=== PATIENT | male | born 1945 | race Caucasian/White ===

== ENCOUNTER → 2016-12-07 | Outpatient (CLI) | payer BC, OTHER | LOC: FIMAGING 07:59 | PROVIDERS: ATTEND Internal Medicine Hematology & Oncology | DX: C43.9 Malignant melanoma of skin, unspecified (principal) ==

== ENCOUNTER → 2018-03-22 | Outpatient (CLI) | payer BC | LOC: FIMAGING 13:48 | PROVIDERS: ATTEND Internal Medicine Hematology & Oncology | DX: Z08 Encounter for follow-up examination after completed treatment for malignant neoplasm (principal); Z85.820 Personal history of malignant melanoma of skin ==

== ENCOUNTER → 2018-04-27 | Outpatient (CLI) | payer BC ==
[~2018-04-27] MED LIST: GADOBUTROL 10 ML VIAL IVP ONE
== END ==
LOC: FIMAGING 09:33
PROVIDERS: ATTEND Specialist
DX: C61 Malignant neoplasm of prostate (principal)
CPT/HCPCS: 72197; 76377; 78306; A9503; A9585

== ENCOUNTER 2018-08-19 00:55 | Emergency (ER) | payer OTHER, MEDICARE ==
[2018-08-19] MEDS ORDERED: ONDANSETRON 4 MG/2 ML VIAL ONE (01:16)
[2018-08-19] MEDS ORDERED: ONDANSETRON 4 MG/2 ML VIAL IVP ONE (01:16)
[2018-08-19] MEDS ORDERED: NS 1,000 ML IV ONE (01:31)
[2018-08-19] MEDS ORDERED: HYDROmorphONE/DILAUDID 2 MG/ML INJ IVP ONE (01:31)
[2018-08-19 01:52] LABS: PLATELET COUNT 176 10^3/uL (150-400)
--- NOTE | 2018-08-19 01:53 | EDPHY ---
H & P Stated Complaint: l flank pain - Personal History Current Tetanus Diphtheria and Acellular Pertussis (TDAP): Unsure - Medical/Surgical History Hx Diabetes: No Other PMH: htn, prostate ca. melanoma (10 yrs ago). kidney stones. hernia repair. vasectomy - Social History Smoking Status: Never smoked Time Seen by Provider: 08/19/18 01:27 HPI/ROS: Chief complaint: Left flank pain History of present illness: This is a 72-year-old male with multiple medical problems including stage III prostate cancer who presents to the emergency department for left flank pain. He describes the onset of pain this evening. Describes a sharp pain. It has been intermittent in nature. It is starting to radiate towards his abdomen. He has had associated nausea. He denies specific precipitating factors. He denies any alleviating factors. He denies other associated signs or symptoms including no fevers, no urinary symptoms, no diarrhea or constipation. He had a kidney stone a number of years ago in the right, this feels similar. Review of systems: A 10 point review of systems was obtained and other than described above was negative (Chandan Gunn) - Physical Exam Exam: General Appearance: Alert, nontoxic. Eyes: Pupils equal and round no pallor or injection. ENT, Mouth: Mucous membranes moist. Respiratory: There are no retractions, lungs are clear to auscultation. Cardiovascular: Regular rate and rhythm. Gastrointestinal: Abdomen is soft and non tender, no masses, bowel sounds normal. Genitourinary: No CVA tenderness Neurological: Alert and oriented x4. Strength and sensation intact and symmetrical. Skin: Warm and dry, no rashes. Musculoskeletal: Neck is supple non tender. Extremities are symmetrical, full range of motion. Psychiatric: Patient is oriented X 3, there is no agitation. (Chandan Gunn) Constitutional: Initial Vital Signs Temperature (C) 36.6 C 08/19/18 00:59 Heart Rate 91 08/19/18 00:59 Respiratory Rate 14 08/19/18 00:59 Blood Pressure 127/69 H 08/19/18 00:59 O2 Sat (%) 96 08/19/18 00:59 O2 Delivery Mode Room Air O2 (L/minute) 2 Allergies/Adverse Reactions: No Known Allergies Allergy (Verified 11/13/14 12:26) Home Medications: Medication Instructions Recorded Flonase Nasal [place] 02/17/16 Omeprazole 02/17/16 Zantac 02/17/16 LORazepam 08/19/18 Losartan/Hydrochlorothiazide 08/19/18 Prosteon 08/19/18 oxyCODONE/APAP 5/325 [Percocet 1 - 2 tab PO Q4H PRN #10 tab 08/19/18 5/325 (*)] Medical Decision Making ED Course/Re-evaluation: Patient seen under the supervision of my secondary supervising physician Dr. Aga Sánchez Patient presents with left flank pain. Evaluation for kidney stone is begun. This is pending at time of dictation. Care of patient is turned over to Dr. Sánchez at the end of shift. (Chandan Gunn) PHYSICIAN DOCUMENTATION: The patient was evaluated and managed by the Physician Pulverizer Feeder. My co- signature indicates that I have reviewed this chart and I agree with the findings and plan of care as documented. I am the secondary supervising physician. (Aga Sánchez) Differential Diagnosis: Included but not limited to cystitis, pyelonephritis, nephrolithiasis (Chandan Gunn) - Data Points Laboratory Results: Laboratory Results 08/19/18 00:45 08/19/18 01:20 Medications Given: Discontinued Medications Hydromorphone HCl (Dilaudid) 1 mg IVP EDNOW ONE Stop: 08/19/18 01:32 Last Admin: 08/19/18 01:37 Dose: 1 mg Sodium Chloride (Ns) 1,000 mls @ 0 mls/hr IV EDNOW ONE; Wide Open PRN Reason: Protocol Stop: 08/19/18 01:32 Last Admin: 08/19/18 01:36 Dose: 1,000 mls Ondansetron HCl (Zofran) 4 mg IVP EDNOW ONE Stop: 08/19/18 01:17 Last Admin: 08/19/18 01:17 Dose: 4 mg Ondansetron HCl (Zofran Odt 4 Mg Prepack#2) 1 btl TAKEHOME EDNOW ONE Stop: 08/19/18 03:22 Last Admin: 08/19/18 03:36 Dose: 1 btl Oxycodone/Acetaminophen (Percocet 5/325mg Prepack#4) 1 btl TAKEHOME EDNOW ONE Stop: 08/19/18 03:22 Last Admin: 08/19/18 03:36 Dose: 1 btl Departure - Departure Disposition: Home, Routine, Self-Care Clinical Impression: Kidney stone Condition: Good Instructions: Oxycodone/Acetaminophen (By mouth), Ondansetron (By mouth), Kidney Stones (ED), How to Strain Your Urine (ED) Additional Instructions: 1. Take Ibuprofen (same as Advil) 400 mg by mouth three times a day. 2. Percocet as needed for severe pain 3. Strain urine as directed 4. Return to the Emergency Department for intractable pain, fever or vomiting. 5. Followup with the urologist you have been referred to for unimproved symptoms. Referrals: Dougie Waite MD [Primary Care Provider] - As per Instructions Rob Robbins MD [Medical Doctor] - As per Instructions Prescriptions: oxyCODONE/APAP 5/325 [Percocet 5/325 (*)] 1 - 2 tab PO Q4H PRN #10 tab PRN Reason: Pain, Severe
[2018-08-19] MEDS ORDERED: ONDANSETRON 4MG PREPACK#2 BTL TAKEHOME ONE ×2 (03:21→03:27)
[2018-08-19] MEDS ORDERED: OXYCODONE/APAP 5/325MG PREPACK#4 BTL TAKEHOME ONE ×2 (03:21→03:28)
[2018-08-19 03:43] VITALS: BP 112/76
== END 2018-08-19 03:45 | disposition home or self-care (01) ==
DX: N20.0 Calculus of kidney (principal); C61 Malignant neoplasm of prostate; R11.0 Nausea; E86.9 Volume depletion, unspecified; Z85.820 Personal history of malignant melanoma of skin
CPT/HCPCS: 74176; 96360; 99285; J1170; J2405